=== PATIENT | female | born 1985 | race Caucasian/White ===

== ENCOUNTER 2018-02-22 05:04 | Inpatient (IN) | payer OTHER ==
[~2018-02-22] VITALS: Ht 160 cm; Wt 78.0 kg
[2018-02-22] MEDS ORDERED: LACTATED RINGERS 1,000 ML IV SCH (05:07)
[2018-02-22 05:38] VITALS: BP 126/81
[2018-02-22 05:50] LABS: BASOPHILS # (AUTO) 0.04 x10^3/uL (0-0.1); BASOPHILS % (AUTO) 1 % (0-1); EOSINOPHILS # (AUTO) 0.46 x10^3/uL (0-0.4); EOSINOPHILS % (AUTO) 6 % (1-7); LYMPHOCYTES # (AUTO) 1.45 x10^3/uL (1-3.4); LYMPHOCYTES % (AUTO) 18 % (22-44); MD NO; MEAN CORPUSCULAR HEMOGLOBIN 29.1 pg (27.0-34.8); MEAN CORPUSCULAR HGB CONC 33.6 g/dL (32.4-35.8); MEAN CORPUSCULAR VOLUME 86.5 fL (80-100); MEAN PLATELET VOLUME 9.4 fL (7.4-10.4); MONOCYTES # (AUTO) 0.52 x10^3/uL (0.2-0.8); MONOCYTES % (AUTO) 6 % (2-9); NEUTROPHILS # (AUTO) 5.56 x10^3/uL (1.8-6.8); NEUTROPHILS % (AUTO) 69 % (42-75); PLATELET COUNT 277 x10^3/uL (130-400); RED BLOOD COUNT 4.32 x10^6/uL (3.82-5.3); RED CELL DISTRIBUTION WIDTH 13.5 % (9.6-15.2)
[2018-02-22] MEDS ORDERED: SODIUM CITRATE/CITRIC ACID 30 ML UDC ONE (06:15)
[2018-02-22] MEDS ORDERED: METOCLOPRAMIDE 5 MG/ML, 2ML ONE (06:15)
[2018-02-22] MEDS ORDERED: SODIUM CITRATE/CITRIC ACID 30 ML UDC PO ONE (06:30)
[2018-02-22] MEDS ORDERED: METOCLOPRAMIDE 5 MG/ML, 2ML IVPush ONE (06:30)
[2018-02-22] MEDS ORDERED: PHENYLEPHRINE 10 MG/ML ONE (07:21)
[2018-02-22] MEDS ORDERED: ONDANSETRON 2MG/ML, 2ML ONE (07:21)
[2018-02-22] MEDS ORDERED: WATER-INJECTION,STERILE 10 ML IV ONE (07:21)
[2018-02-22] MEDS ORDERED: CEFAZOLIN 1,000 MG ONE (07:21)
[2018-02-22] MEDS ORDERED: EPHEDRINE 50 MG/ML, 1ML ONE (07:21)
[2018-02-22] MEDS ORDERED: OXYTOCIN 10 UNITS/ML, 1ML ONE (07:21)
[2018-02-22] MEDS ORDERED: OXYcodone/APAP 5/325MG TABLET PO PRN (08:00)
[2018-02-22] MEDS ORDERED: ACETAMINOPHEN 500 MG TABLET PO PRN (08:00)
[2018-02-22] MEDS ORDERED: PREN1TAB60 PO (08:27)
== END 2018-02-22 13:20 | disposition home or self-care (01) | DRG 782 ==
LOC: LDIP 05:04 → OBSVTOIN 11:20
PROVIDERS: ADMIT Obstetrics & Gynecology Maternal & Fetal Medicine; ATTEND Obstetrics & Gynecology Maternal & Fetal Medicine
PROC: 0UVC7ZZ Restriction of Cervix, Via Natural or Artificial Opening (ICD-10-PCS; principal; 2018-02-22)
DX: O26.872 Cervical shortening, second trimester (principal); Z3A.22 22 weeks gestation of pregnancy
CPT/HCPCS: 36415; 85025; 86850; 86900; G0378; J0690; J2405; J2370; J2590; J2765; J7120